=== PATIENT | female | born 1955 | race Caucasian/White ===

== ENCOUNTER 2018-01-03 12:06 | Emergency (ER) | payer OTHER ==
[~2018-01-03] VITALS: Ht 177.8 cm; Wt 76.2 kg
[~2018-01-03 12:06] MED LIST: ADVAIR 100-501 EACH INH; BENZTROPINE ME0.5 MG PO; BYSTOLIC20 MG PO; EFFEXOR XR150 MG PO; EFFEXOR37.5 MG PO; GABAPENTIN300 MG PO; LATUDA20 MG PO; LATUDA80 MG PO; LISINOPRIL40 MG PO; NEURONTIN800 M1 PO; NORVASC 10MG10 MG PO; OXCARBAZEPINE300 MG PO; PRAZOSIN HCL1 MG PO; PROAIR HFA8.5 GM INH; VITAB121000 PO; VITAMIN D31000 IU PO
[2018-01-03 12:48] LABS: ABSOLUTE BASOPHIL COUNT 0.1 /CUMM (0.0-0.2); ABSOLUTE EOSINOPHIL COUNT 0 /CUMM (0.0-0.7); ABSOLUTE GRANULOCYTE CT 7.4 /CUMM (1.4-6.5); ABSOLUTE LYMPH COUNT 1.2 /CUMM (1.2-3.4); ABSOLUTE MONOCYTE COUNT 0.4 /CUMM (0.10-0.60); BASOPHIL % 0.7 % (0.0-2.0); EOSINOPHIL % 0.3 % (0-5); GRANULOCYTE % 80.9 % (42.2-75.2); HEMATOCRIT 45.4 % (37-47); MEAN CORPUSCULAR HGB 31.2 PG (27.0-31.0); MEAN CORPUSCULAR HGB CONC 34.6 G/DL (33.0-37.0); MEAN CORPUSCULAR VOLUME 90.1 FL (81.0-99.0); MEAN PLATELET VOLUME 7.6 FL (7.4-10.4); RBC DISTRIBUTION WIDTH 13.4 % (11.5-14.5); RED BLOOD CELL CT 5.03 /CUMM (4.20-5.40); WHITE BLOOD CELL COUNT 9.2 /CUMM (4.8-10.8)
[2018-01-03 13:11] LABS: PLATELET COUNT 418 /CUMM (130-400)
--- NOTE | 2018-01-03 13:34 | ED GI/GU/ABDOMINAL COMPLAINT ---
History of Present Illness General Chief Complaint: Abdominal Pain/Flank Pain Stated Complaint: ABD PAIN Source: patient Exam Limitations: no limitations Allergies Coded Allergies: No Known Allergies (01/03/18) Triage Note: PT SENT TO ED BY DR. GARCÍA FOR LUQ TO MID ABD PAIN WITH NAUSEA X MONTHS. SENT IN TO R/O PANCREATITIS. DENIES DIARRHEA OR DIFFICULTY URINATING. Triage Nurses Notes Reviewed? yes ? n Is pt currently ? No Onset: chronic Duration: week(s):, getting worse Timing: recent history Quality/Severity: aching Severity Numbers: 7 Location: epigastric, left upper quadrant HPI: 62 year old female with history of COPD presents to the emergency room for abdominal pain. She has been having this pain for eight months which has been worsening the past two to three months. She is having a 7/10 achy, continuous pain in her LUQ abdomen and epigastric pain without any food triggers. She states she has seen a GI for an endoscopy and colonoscopy but she does not remember the results. She endorses confusion, trouble speaking, intentional 100 pound weight loss in one year, night sweats, nausea, and dizziness. She denies chest pain, shortness of breath, fevers, vomiting, abdominal surgery, alcohol use, loss of appetite, diarrhea, constipation, or issues with her urination. She has family history of colorectal cancer. (Job Go) Vital Signs & Intake/Output Vital Signs & Intake/Output Vital Signs Date Time Temp Pulse Resp B/P B/P Pulse O2 O2 Flow FiO2 Mean Ox Delivery Rate 01/03 1448 103 20 112/80 97 Room Air 01/03 1225 97.9 118 20 114/82 98 Room Air Room Air ED Intake and Output 01/04 0000 01/03 1200 Intake Total 1000 Output Total Balance 1000 Intake, IV 1000 Patient 168 lb Weight Weight Standing Scale Measurement Method Reconcile Medications Albuterol Sulfate (Proair Hfa) 90 MCG HFA.AER.AD 2 PUF INH Q4-6 PRN PRN SHORTNESS OF BREATH (Reported) Alprazolam 0.5 MG TABLET 1 TAB PO 4 TIMES/DAY ANXIETY (Reported) Amlodipine Besylate (Norvasc) 10 MG TABLET 1 TAB PO DAILY HEART (Reported) Duloxetine Hydrochloride (Cymbalta) 30 MG CAPSULE.DR 3 CAP PO DAILY NEUROPATHY (Reported) Fluticasone-Salmeterol (Advair 100-50 Diskus) 100 MCG-50 MCG/DOSE BLST.W.DEV 1 PUF INH BID BREATHING PROBLEMS (Reported) Gabapentin 400 MG CAPSULE 1 CAP PO 4 TIMES/DAY PAIN (Reported) Ipratropium/Albuterol Sulfate (Iprat-Albut 0.5-3(2.5) MG/3 Ml) 0.5 MG-3 MG (2.5 MG BASE)/3 ML AMPUL.NEB 1 UNIT PO Q4 HRS NEEDED PRN SHORTNESS OF BREATH ( Reported) Losartan Potassium (Cozaar) 50 MG TABLET 1 TAB PO DAILY HEART (Reported) Oxycodone HCl/Acetaminophen (Percocet 5-325 MG Tablet) 5 MG-325 MG TABLET 1 TAB PO BID PRN pain (Shawn Bowles) Past History Travel History Traveled to [place] past 21 day No Medical History Any Pertinent Medical History? see below for history Neurological: NONE EENT: NONE Cardiovascular: hypertension Respiratory: COPD Gastrointestinal: NONE Hepatic: NONE Renal: NONE Musculoskeletal: NONE Psychiatric: depression, PTSD cocaine abuse (PREVIOUS) cannabis abuse Endocrine: NONE Blood Disorders: NONE Cancer(s): NONE FUR BUYER/Reproductive: NONE History of MRSA: No History of VRE: No History of CDIFF: No Pneumonia Vaccine: 11/11/15 Surgical History Surgical History: non-contributory Psychosocial History Who do you live with Patient/Self Services at Home None What is your primary language Frisian Tobacco Use: Current Daily Use Daily Tobacco Use Amount/Type: => 5 Cigarettes daily ETOH Use: denies use Illicit Drug Use: marijuana Family History Family History, If Any: FATHER (Coronary artery disease). maternal aunt (TIAs). Hx Contributory? No (oJb Go) Review of Systems Review of Systems Constitutional: Reports: see HPI. EENTM: Reports: no symptoms. Respiratory: Denies: see HPI. Cardiovascular: Denies: see HPI. GI: Reports: see HPI. Genitourinary: Denies: see HPI. Neurological/Psychological: Reports: see HPI. Hematologic/Endocrine: Reports: no symptoms. (Job Go) Physical Exam Physical Exam General Appearance: well developed/nourished, alert, awake Head: atraumatic Eyes: Bilateral: normal appearance. Ears, Nose, Throat, Mouth: hearing grossly normal Neck: normal inspection, full range of motion Respiratory: normal breath sounds, no respiratory distress Cardiovascular: regular rate/rhythm Gastrointestinal: normal bowel sounds, RLQ & epigastric tenderness Back: normal inspection Extremities: normal range of motion Neurologic/Psych: no motor/sensory deficits, awake, alert, oriented x 3, normal mood/affect, weir fisherman II-XII nml as tested, finger to nose intact Skin: intact Core Measures ACS in differential dx? No Sepsis Present: No Sepsis Focused Exam Completed? No (Ney BUSTAMANTE,Job) Progress Differential Diagnosis: AMI, biliary colic, bowel obstruction, cholecystitis, diverticulitis, gastritis, hepatitis, ischemic bowel, pancreatitis, peptic ulcer , PUD/GERD, SBO, UTI/pyelo Diagnostic Imaging: Viewed by Me: CT Scan. Discussed w/RAD: CT Scan. Radiology Impression: PATIENT: DEXTRE BARBA PRESENT AGE: 62 PATIENT ACCOUNT NO: [id number] : 54 LOCATION: [facility] ORDERING PHYSICIAN: Job BUSTAMANTE SERVICE DATE: 01/03/18 EXAM TYPE : CAT - CT ABD & PELVIS W IV CONTRAST EXAMINATION: CT ABDOMEN AND PELVIS WITH CONTRAST CLINICAL INFORMATION: Right lower quadrant and epigastric pain. COMPARISON: None TECHNIQUE: Multidetector volumetric imaging was performed of the abdomen and pelvis following IV administration of 95 mL of Optiray 320 intravenous contrast. Sagittal and coronal reformatted images were obtained on the technologist's workstation. DLP: 330 mGy-cm FINDINGS: LUNG BASES: Mild thickening of bronchial bernardo in visualized lung bases. Small, noncalcified 0.4 cm and 0.3 cm nodules within the right middle lobe. 0.3 cm noncalcified pleural- based nodule of the medial right lower lobe. No pleural effusion. Trace pericardial effusion.. LIVER, GALLBLADDER, AND BILIARY TREE: Liver has normal size, contour and attenuation. No evidence of hepatic mass or intrahepatic bile duct dilatation. Gallbladder is distended to 4.7 cm transverse diameter. No evidence of gallbladder wall edema, pericholecystic fluid or pericholecystic fat stranding. Gallbladder contains a 1.3 cm rim calcified gallstone. Common bile duct is grossly unremarkable. PANCREAS: Diffuse, moderate atrophy of the pancreas. No acute findings. SPLEEN: Unremarkable. ADRENAL GLANDS: Unremarkable. KIDNEYS AND URETERS: The kidneys are normal in size, shape, and attenuation. No hydronephrosis, hydroureter, or calculi seen. No perinephric stranding. BLADDER: Unremarkable. GASTROINTESTINAL TRACT: Stomach is unremarkable. Bowel loops are normal in caliber. There are colonic diverticula, most numerous in the sigmoid colon, without diverticulitis. Appendix is normal. No ascites or pneumoperitoneum. ABDOMINAL WALL: Unremarkable. LYMPH NODES: Normal. VASCULAR: Atherosclerosis of the visualized thoracic aorta, abdominal aorta and iliofemoral vessels. There is some noncalcified plaque and/or inner wall thrombus along the anterior wall of the visualized distal descending thoracic aorta. The tortuous infrarenal abdominal aorta measures up to 2.5 cm AP diameter ; no aneurysm. The ectatic right common iliac artery is 1.5 cm whereas the left common iliac artery measures up to 1.1 cm. PELVIC VISCERA: The uterus is retroflexed. No evidence of uterine or adnexal mass. No pelvic free fluid. OSSEOUS STRUCTURES: No aggressive osseous lesions. Levoscoliosis of the degenerated lumbar spine. Within the lumbar spine, discovertebral degenerative changes are predominantly seen at L2-L3 and L3-L4. Synovial herniation pits of each femoral neck. Mild osteoarthrosis of both hips. IMPRESSION: 1. Colonic diverticulosis without diverticulitis. 2. Appendix is normal. 3. Cholelithiasis with a moderately distended gallbladder. No pericholecystic fluid or cholecystic inflammatory changes. However, if the patient has persistent right-sided abdominal pain (particularly if pain localizes to right upper quadrant), then consider follow-up with gallbladder ultrasound. 4. Incidentally detected are a few small noncalcified pulmonary nodules of < 0.5 cm size. DICTATED BY: Bennett Presley MD DATE/TIME DICTATED:01/03/181411 BENCH EXAMINER:KURT DATE/ TIME TRANSCRIBED:01/03/181411 CONFIDENTIAL, DO NOT COPY WITHOUT APPROPRIATE AUTHORIZATION. <Electronically signed in Other Vendor System> SIGNED BY: Bennett Presley MD 01/03/181426 Initial ED EKG: normal sinus rhythm, rate (95) Hand-Off Endorsed To: Shawn Bowles Endorsed Time: 1558 Pending: CT, labs (Job Go) Differential Diagnosis: intoxiaciton, encephalopathy Plan of Care: Orders Procedure Date/time Status URINE DRUG SCREEN FOR ER ONLY 01/03 1705 Complete AMMONIA 01/03 1702 Complete Add-on Test (ER Only) 01/03 1700 Active Add-on Test (ER Only) 01/03 1305 Active URINALYSIS 01/03 1305 Complete EKG 01/03 1305 Active TROPONIN LEVEL 01/03 1232 Complete ETHANOL 01/03 1232 Complete LIPASE 01/03 1228 Complete COMPREHENSIVE METABOLIC PANEL 01/03 1228 Complete CBC WITHOUT DIFFERENTIAL 01/03 1228 Complete Laboratory Tests 01/03/18 1825: Urine Opiates Screen 214, Methadone Screen 67, Barbiturate Screen < 60, Ur Phencyclidine Scrn < 6.00, Amphetamines Screen < 100, U Benzodiazepines Scrn > 800 H, Urine Cocaine Screen < 50, Urine Cannabis Screen > 80.00 H 01/03/18 1710: Ammonia < 9 L 01/03/18 1550: Urine Color YEL, Urine Clarity CLEAR, Urine pH 8.0, Ur Specific [place] <= 1.005 , Urine Protein 30 H, Urine Ketones 15 H, Urine Nitrite NEG, Urine Bilirubin NEG, Urine Urobilinogen 1.0, Ur Leukocyte Esterase NEG, Ur Microscopic SEDIMENT EXAMINED, Urine WBC 1-3 H, Ur Epithelial Cells FEW, Urine Bacteria FEW H, Urine Hemoglobin NEG, Urine Glucose NEG 01/03/18 1232: Anion Gap 17 H, Estimated GFR > 60, BUN/Creatinine Ratio 14.3, Glucose 189 H, Calcium 9.6, Total Bilirubin 1.0, AST 18, ALT 27, Alkaline Phosphatase 134 H, Troponin I < 0.01, Total Protein 7.0, Albumin 4.4, Globulin 2.6, Albumin/ Globulin Ratio 1.7, Lipase 26, CBC w Diff NO MAN DIFF REQ, RBC 5.03, MCV 90.1, MCH 31.2 H, MCHC 34.6, RDW 13.4, MPV 7.6, Gran % 80.9 H, Lymphocytes % 13.4 L , Monocytes % 4.7, Eosinophils % 0.3, Basophils % 0.7, Absolute Granulocytes 7.4 H, Absolute Lymphocytes 1.2, Absolute Monocytes 0.4, Absolute Eosinophils 0, Absolute Basophils 0.1, Serum Alcohol < 10.[address] Palma who is in to evaluate EtOH ammonia level was ordered, we discussed with the patient playful her CAT scan results incidental findings and lab work. She states she's been seen by a surgeon in [place] regarding her gallstones. She is also been worked up by GI regarding her abdominal pain with no cause identified 1849 i d/w the pt her remaining labs, she reports to feeling sig better with iv fluids. she now states she had a similar episode of confusion in past, and was found to be dehydrated, given iv fluids with improvement. i again d/w her plan of care, need for f/u surgery, gi, and pmd this week. return preactuions discussed at length. (Osei BUSTAMANTE,Shawn) Departure Departure Condition: Stable (Ney BUSTAMANTE,Job) Departure Time of Disposition: 1849 Disposition: HOME OR SELF CARE Clinical Impression Primary Impression: Abdominal pain Referrals: Jaron DANG,Jayesh Vgea (PCP/Family) Migel DANG,Jose Luis Ma Additional Instructions: follow up with surgeon dr patel as discussed regarding the finding of your gallstones today.folllow up with your primary care physician and your wrapper stitcher as well regarding your chronic pain. percocet for breakthrough pain. Please go over all results of today's visit with your primary care doctor. Contact your primary care doctor to let them know you were here in the emergency room. There may be nonspecific findings which may not be related to your visit today here in the emergency room but may require further evaluation and chronic monitoring by your primary care doctor. If you had a laceration today the chance of foreign body always remains. You should follow-up with your primary care doctor for recheck in 3-5 days for a wound check. If you had an x-ray done there is a chance that a fracture could have been missed on initial read and you should follow-up with your primary care doctor for repeat x-rays if symptoms persist. If your blood pressure was elevated here in the emergency room please have rechecked by [facility] primary care doctor within the next 48. If you were prescribed a narcotic here in the emergency room or any type of controlled substances you're not allowed to drive while taking this medication or operate any type of heavy machinery. Narcotics can make you feel lightheaded dizziness nausea and can cause constipation. You may need to pickle pumper a stool softener. Thank you for choosing [facility] emergency room. Please return to the emergency room immediately if you have any other concerns worsening of symptoms. Departure Forms: Customer Survey General Discharge Information Prescriptions: Current Visit Scripts Oxycodone HCl/Acetaminophen (Percocet 5-325 MG Tablet) 1 TAB PO BID PRN pain #8 TAB (Shawn Bowles) PA/DIRECTOR FIELD SERVICES Co-Sign Statement Statement: ED Attending supervision documentation- [X] I saw and evaluated the patient. I have also reviewed all the pertinent lab results and diagnostic results. I agree with the findings and the plan of care as documented in the PA's/DIRECTOR FIELD SERVICES's documentation. [] I have reviewed the ED Record and agree with the PA's/DIRECTOR FIELD SERVICES's documentation. [] Additions or exceptions (if any) to the PAs/DIRECTOR FIELD SERVICES's note and plan are summarized below: [] (Jaziel Palma DO)
--- NOTE | 2018-01-03 14:27 | CT SCAN REPORT ---
EXAMINATION: CT ABDOMEN AND PELVIS WITH CONTRAST CLINICAL INFORMATION: Right lower quadrant and epigastric pain. COMPARISON: None TECHNIQUE: Multidetector volumetric imaging was performed of the abdomen and pelvis following IV administration of 95 mL of Optiray 320 intravenous contrast. Sagittal and coronal reformatted images were obtained on the technologist's workstation. DLP: 330 mGy-cm FINDINGS: LUNG BASES: Mild thickening of bronchial bernardo in visualized lung bases. Small, noncalcified 0.4 cm and 0.3 cm nodules within the right middle lobe. 0.3 cm noncalcified pleural-based nodule of the medial right lower lobe. No pleural effusion. Trace pericardial effusion.. LIVER, GALLBLADDER, AND BILIARY TREE: Liver has normal size, contour and attenuation. No evidence of hepatic mass or intrahepatic bile duct dilatation. Gallbladder is distended to 4.7 cm transverse diameter. No evidence of gallbladder wall edema, pericholecystic fluid or pericholecystic fat stranding. Gallbladder contains a 1.3 cm rim calcified gallstone. Common bile duct is grossly unremarkable. PANCREAS: Diffuse, moderate atrophy of the pancreas. No acute findings. SPLEEN: Unremarkable. ADRENAL GLANDS: Unremarkable. KIDNEYS AND URETERS: The kidneys are normal in size, shape, and attenuation. No hydronephrosis, hydroureter, or calculi seen. No perinephric stranding. BLADDER: Unremarkable. GASTROINTESTINAL TRACT: Stomach is unremarkable. Bowel loops are normal in caliber. There are colonic diverticula, most numerous in the sigmoid colon, without diverticulitis. Appendix is normal. No ascites or pneumoperitoneum. ABDOMINAL WALL: Unremarkable. LYMPH NODES: Normal. VASCULAR: Atherosclerosis of the visualized thoracic aorta, abdominal aorta and iliofemoral vessels. There is some noncalcified plaque and/or inner wall thrombus along the anterior wall of the visualized distal descending thoracic aorta. The tortuous infrarenal abdominal aorta measures up to 2.5 cm AP diameter; no aneurysm. The ectatic right common iliac artery is 1.5 cm whereas the left common iliac artery measures up to 1.1 cm. PELVIC VISCERA: The uterus is retroflexed. No evidence of uterine or adnexal mass. No pelvic free fluid. OSSEOUS STRUCTURES: No aggressive osseous lesions. Levoscoliosis of the degenerated lumbar spine. Within the lumbar spine, discovertebral degenerative changes are predominantly seen at L2-L3 and L3-L4. Synovial herniation pits of each femoral neck. Mild osteoarthrosis of both hips. IMPRESSION: 1. Colonic diverticulosis without diverticulitis. 2. Appendix is normal. 3. Cholelithiasis with a moderately distended gallbladder. No pericholecystic fluid or cholecystic inflammatory changes. However, if the patient has persistent right-sided abdominal pain (particularly if pain localizes to right upper quadrant), then consider follow-up with gallbladder ultrasound. 4. Incidentally detected are a few small noncalcified pulmonary nodules of < 0.5 cm size.
[2018-01-03 14:48] VITALS: BP 112/80
[2018-01-03] MEDS ORDERED: GABAPENTIN400 M2 PO (15:31)
[2018-01-03] MEDS ORDERED: COZAAR50 M1 PO (15:31)
[2018-01-03] MEDS ORDERED: CYMBALTA30 M1 PO (15:32)
[2018-01-03] MEDS ORDERED: ALPRAZOLAM0.5 M4 PO (15:33)
[2018-01-03] MEDS ORDERED: IPRAT-ALBUT 0.5-3 ML PO (15:34)
[2018-01-03] MEDS ORDERED: NORVASC10 M1 PO (15:35)
--- NOTE | 2018-01-03 16:16 | CT SCAN REPORT ---
EXAMINATION: CT HEAD WITHOUT CONTRAST CLINICAL INFORMATION: Confusion. COMPARISON: CT scan of the head 11/10/2015. TECHNIQUE: Contiguous axial imaging was performed from the skull base to vertex without intravenous administration of contrast. DLP: 617.13 mGy-cm FINDINGS: There is no evidence of acute intracranial hemorrhage or territorial infarction. No abnormal mass effect or midline shift is seen. Kc to white matter differentiation is well preserved. No extra-axial fluid collections are identified. The ventricles are normal in size. There is mild low attenuation in the periventricular and subcortical white matter, consistent with microvascular changes, similar compared to the prior study. There are no acute osseous findings. There are degenerative changes of the right temporomandibular joint. The visualized mastoid air cells and paranasal sinuses are well aerated. IMPRESSION: 1. There are no acute bleeds or territorial infarcts. 2. No masses, fluid collections or midline shift are seen.
[2018-01-03] MEDS ORDERED: PERCOCET 5-3251 EACH PO (16:32)
== END 2018-01-03 19:01 ==
LOC: ERH 12:06
PROVIDERS: Emergency Medicine
DX: R10.31 Right lower quadrant pain (principal); R10.13 Epigastric pain
CPT/HCPCS: 74177; 80307; 81001; 93005; 93010; 96360; 96361; G0480